=== PATIENT | male | born 1950 | race Caucasian/White ===

== ENCOUNTER 2022-05-27 15:26 | Emergency (ER) | payer MEDICARE ==
[~2022-05-27] VITALS: Ht 162.6 cm; Wt 64.0 kg
[2022-05-28] MEDS ORDERED: HYDRALAZINE 20MG/ML VIAL IV ONE (00:30)
[2022-05-28] MEDS ORDERED: ISOSORBIDE MONONITRATE 60MG TABLET SR 24HR PO STA (00:30)
[2022-05-28 08:00] VITALS: BP 125/67
== END 2022-05-28 08:44 ==
LOC: ER 15:26
DX: I12.0 Hypertensive chronic kidney disease with stage 5 chronic kidney disease or end stage renal disease (principal); E11.22 Type 2 diabetes mellitus with diabetic chronic kidney disease; N18.6 End stage renal disease; Z99.2 Dependence on renal dialysis; Z98.890 Other specified postprocedural states
CPT/HCPCS: 96374; 99285; J0360